=== PATIENT | female | born 1980 | race Caucasian/White ===

== ENCOUNTER 2019-10-27 07:04 | Emergency (ER) | payer OTHER ==
[~2019-10-27] VITALS: Ht 170.2 cm; Wt 67.0 kg
[2019-10-27] MEDS ORDERED: DICYCLOMINE 20 MG TABLET ONE (07:26)
[2019-10-27] MEDS ORDERED: DICYCLOMINE 20 MG TABLET PO ONE (07:30)
--- NOTE | 2019-10-27 07:31 | NUR ---
PT REPORTS DIARRHEA X14 DAYS, HX OF DIVERTICULITIS. "IT STARTED WITH THE RUNS AND THEN THE PAIN ON MY LEFT SIDE STARTED" WHICH IS WHERE PT'S PREVIOUS DIVERTICULITIS FLARES HAVE BEEN. RESPIRATIONS EVEN AND UNLABORED ON RA. NAD NOTED AT THIS TIME. PT AWARE OF NEED FOR STOOL SAMPLE. LABS DRAWN.
[2019-10-27 07:40] LABS: BASOPHILS # (AUTO) 0.02 x10^3/uL (0-0.1); BASOPHILS % (AUTO) 0 % (0-1); EOSINOPHILS # (AUTO) 0.05 x10^3/uL (0-0.4); EOSINOPHILS % (AUTO) 1 % (1-7); LYMPHOCYTES # (AUTO) 1.72 x10^3/uL (1-3.4); LYMPHOCYTES % (AUTO) 19 % (22-44); MD NO; MEAN CORPUSCULAR HEMOGLOBIN 32.1 pg (27.0-34.8); MEAN CORPUSCULAR HGB CONC 33.6 g/dL (32.4-35.8); MEAN CORPUSCULAR VOLUME 95.4 fL (80-100); MONOCYTES # (AUTO) 0.83 x10^3/uL (0.2-0.8); MONOCYTES % (AUTO) 9 % (2-9); NEUTROPHILS # (AUTO) 6.66 x10^3/uL (1.8-6.8); NEUTROPHILS % (AUTO) 72 % (42-75); PLATELET COUNT 271 x10^3/uL (130-400); RED BLOOD COUNT 4.66 x10^6/uL (3.82-5.3); RED CELL DISTRIBUTION WIDTH 12.8 % (9.6-15.2)
[2019-10-27 07:51] LABS: ALANINE AMINOTRANSFERASE 29 U/L (12-78); ALBUMIN 3.4 g/dL (3.4-5.0); ANION GAP 5 mmol/L (5-15); CHLORIDE 107 mmol/L (98-107); CREATININE 0.88 mg/dL (0.55-1.02)
[2019-10-27 07:56] LABS: ALKALINE PHOSPHATASE 60 U/L (45-117); BILIRUBIN,TOTAL 0.4 mg/dL (0.2-1.0); TOTAL PROTEIN 7.1 g/dL (6.4-8.2)
--- NOTE | 2019-10-27 08:20 | NUR ---
PT TAKEN TO CT. NAD NOTED.
--- NOTE | 2019-10-27 08:40 | NUR ---
PT RETURNED FROM CT. PT SITTING UP IN BED, USING CELL PHONE. NAD NOTED AT THIS TIME. RESPIRATIONS EVEN AND UNLABORED ON RA. PT REPORTS DECREASE IN ABDOMINAL PAIN FOLLOWING PO MEDS. AWAITING CT RESULTS.
--- NOTE | 2019-10-27 09:05 | NUR ---
Patient resting in [facility]. NAD.
[2019-10-27] MEDS ORDERED: OMNIPAQUE 350 MG/ML, 100ML BOTTLE ONE (09:09)
[2019-10-27 09:41] VITALS: BP 123/84
--- NOTE | 2019-10-27 09:42 | NUR ---
Patient/Caregiver given discharge instructions and they have confirmed that they understand the instructions. Patient ambulatory with steady gait.
== END 2019-10-27 09:44 | disposition home or self-care (01) ==
LOC: ED 09:24
DX: R19.7 Diarrhea, unspecified (principal); R10.10 Upper abdominal pain, unspecified
CPT/HCPCS: 36415; 74177; 80053; 83690; 84703; 85025; 99284; Q9967

== ENCOUNTER 2019-11-13 09:07 | Day surgery (SDC) | payer OTHER ==
[~2019-11-13] VITALS: Ht 170.2 cm; Wt 65.0 kg
[2019-11-13 09:32] VITALS: BP 132/87
[2019-11-13 09:45] LABS: HCG UR SG 1.015 (1.003-1.030)
[2019-11-13] MEDS ORDERED: PROPOFOL 10 MG/ML, 20ML ONE ×5 (10:23→10:33)
== END 2019-11-13 12:45 | disposition home or self-care (01) ==
LOC: OR 09:07
PROVIDERS: ATTEND Internal Medicine Gastroenterology
DX: K57.30 Diverticulosis of large intestine without perforation or abscess without bleeding (principal); K52.839 Microscopic colitis, unspecified; R19.7 Diarrhea, unspecified; Z80.51 Family history of malignant neoplasm of kidney; Z80.52 Family history of malignant neoplasm of bladder
CPT/HCPCS: 45380; 81025; 88305; J2704